=== PATIENT | male | born 1945 | race Asian ===

== ENCOUNTER 2022-05-04 16:37 | Emergency (ER) | payer MEDICARE, OTHER ==
[~2022-05-04] VITALS: Ht 175.3 cm; Wt 77.1 kg
[2022-05-04 16:42] VITALS: BP 114/66
--- NOTE | 2022-05-04 16:47 | NUR ---
PT WAS B/B AMBULANCE FROM [facility]. PT WAS ALERT, ABLE TO STATE HIS NAME AND LOCATION. UNABLE TO REMENBER THE DATE. NO ACUTE DITRESS WAS FOUND.
[2022-05-04 17:10] LABS: BASOPHILS % (AUTO) 0.5 % (0.0-2.0); EOSINOPHILS # (AUTO) 0.6 K/uL (0-0.4); HEMATOCRIT 38.4 % (36-52); HEMOGLOBIN 12.6 g/dL (12.0-18.0); LYMPHOCYTES # (AUTO) 1.6 K/uL (2.0-11.5); LYMPHOCYTES % (AUTO) 19.6 % (20.5-51.1); MEAN CORPUSCULAR HEMOGLOBIN 25 pg (27-31); MEAN CORPUSCULAR HGB CONC 33 g/dL (33-37); MEAN CORPUSCULAR VOLUME 76.5 fL (80-94); MONOCYTES # (AUTO) 0.6 K/uL (0.8-1.0); MONOCYTES % (AUTO) 7.2 % (1.7-9.3); NEUTROPHILS # (AUTO) 5.2 K/uL (1.8-7.7); NEUTROPHILS % (AUTO) 65.7 % (42.2-75.2); PLATELET COUNT (AUTO) 146 K/uL (140-450); RED BLOOD CELL COUNT(AUTO) 5.02 MIL/uL (4.20-6.10); RED CELL DISTRIBUTION WIDTH 15.6 % (11.6-13.7)
[2022-05-04 17:24] LABS: ALBUMIN 2.8 g/dL (3.4-5.0); ANION GAP 14.2 (8-16); ASPARTATE AMINOTRANSFERASE 15 U/L (15-37); CARBON DIOXIDE 24.1 mmol/L (21-32); CHLORIDE 105 mmol/L (98-107); CREATININE 2.2 mg/dL (0.6-1.3); GLUCOSE 182 mg/dL (74-106); POTASSIUM 4.3 mmol/L (3.5-5.1); SODIUM SERUM 139 mmol/L (136-145); TOTAL BILIRUBIN 0.4 mg/dL (0.0-1.0); UREA NITROGEN, BLOOD 38 mg/dL (7-18)
--- NOTE | 2022-05-04 17:25 | NUR ---
CALLED [place] [facility], SPOKE WITH ELOISA TO INQUIRE MORE INFORMATION PD WAS ON SCENE, REQUESTED TO HAVE A UNIT SENT TO PTS HOUSE-ADDRESS FOUND ON FILE. STATED A UNIT WILL BE SENT OUT.
--- NOTE | 2022-05-04 17:53 | NUR ---
RECEIVED CALL BACK FROM [place] [facility], PTS IS ON HER WAY TO HOSPITAL. DR BILLINGS NOTIFIED
--- NOTE | 2022-05-04 18:16 | NUR ---
CAME IN, MORE INFO UPDATED. PT HAS HX OF DEMENTIA.
--- NOTE | 2022-05-04 18:49 | NUR ---
URINE DIP DONE AND SHOWED TO DR. TINOCO.
--- NOTE | 2022-05-04 18:59 | NUR ---
Patient discharged with v/s stable. Written and verbal after care instructions given and explained TO THE . verbalized understanding. Ambulatory with steady gait. All questions addressed prior to discharge. Advised to follow up with PMD.
[2022-05-04 19:00] VITALS: BP 136/75
== END 2022-05-04 18:59 | disposition home or self-care (01) ==
LOC: MED 16:37
DX: R41.82 Altered mental status, unspecified (principal)
CPT/HCPCS: 36415; 70450; 80053; 81002; 85025; 99284; G0482